=== PATIENT | male | born 1990 | race Caucasian/White ===

== ENCOUNTER 2020-11-20 14:25 | Inpatient (IN) | payer OTHER ==
[~2020-11-20] VITALS: Ht 182.9 cm; Wt 129.3 kg
[2020-11-20] MEDS ORDERED: ONDANSETRON 2MG/ML, 2ML IVPush ONE ×2 (15:00→16:00)
[2020-11-20] MEDS ORDERED: SODIUM CHLORIDE 0.9% 1,000ML IVBOLUS ONE (15:00)
[2020-11-20] MEDS ORDERED: FAMOTIDINE 20 MG/2 ML IVPush ONE (15:00)
[2020-11-20] MEDS ORDERED: SODIUM CHLORIDE FLUSH 10ML SYR IVF ONE (15:00)
[2020-11-20] MEDS ORDERED: FAMOTIDINE 20 MG/2 ML ONE (15:16)
[2020-11-20] MEDS ORDERED: ONDANSETRON 2MG/ML, 2ML ONE (15:16)
[2020-11-20 15:23] LABS: BASOPHILS % (AUTO) 0 % (0-1); EOSINOPHILS % (AUTO) 0 % (1-7); LYMPHOCYTES % (AUTO) 8 % (22-44); MEAN CORPUSCULAR HEMOGLOBIN 28.6 pg (27.5-34.5); MEAN CORPUSCULAR HGB CONC 34.1 g/dL (33.2-36.2); MEAN PLATELET VOLUME 8.4 fL (7.4-10.4); MONOCYTES % (AUTO) 9 % (2-9); NEUTROPHILS % (AUTO) 83 % (42-75); PLATELET COUNT 290 x10^3/uL (130-400); RED BLOOD COUNT 5.67 x10^6/uL (4.38-5.82); RED CELL DISTRIBUTION WIDTH 13.2 % (9.4-14.8)
[2020-11-20 15:27] LABS: ALANINE AMINOTRANSFERASE 633 U/L (12-78); ALBUMIN 4.3 g/dL (3.4-5.0); ANION GAP 7 mmol/L (5-15); CALCIUM 9.3 mg/dL (8.5-10.1); CHLORIDE 107 mmol/L (98-107); CREATININE 1.08 mg/dL (0.7-1.3)
[2020-11-20 15:30] LABS: ALKALINE PHOSPHATASE 199 U/L (45-117); BILIRUBIN,TOTAL 1.1 mg/dL (0.2-1.0); TOTAL PROTEIN 7.5 g/dL (6.4-8.2)
[2020-11-20 15:36] LABS: MD NO
[2020-11-20] MEDS ORDERED: MORPHINE SULFATE 4 MG/ML, 1ML ONE (15:42)
--- NOTE | 2020-11-20 15:50 | NUR ---
IV STARTED. PT MEDICATED PER EMAR. PT IN HOSPITAL GOWN. MONITORS PLACED ON PT. CALL LIGHT WITHIN REACH. PT FATHER AT BEDSIDE.
[2020-11-20] MEDS ORDERED: MORPHINE SULFATE 4 MG/ML, 1ML IVPush PRN (16:00)
[2020-11-20] MEDS ORDERED: OMNIPAQUE 350 MG/ML, 100ML BOTTLE ONE (16:08)
[2020-11-20] MEDS ORDERED: OMEP40CA42 PO (16:34)
[2020-11-20] MEDS ORDERED: hydrALAzine 20 MG/ML, 1ML IVPush PRN (17:00)
[2020-11-20] MEDS ORDERED: KETOROLAC 30 MG/1 ML IM PRN (17:00)
[2020-11-20] MEDS ORDERED: DOCUSATE 100 MG CAPSULE PO PRN (17:00)
[2020-11-20] MEDS ORDERED: METHOCARBAMOL 500 MG TABLET PO PRN (17:00)
[2020-11-20] MEDS ORDERED: ENALAPRILAT 1.25 MG/ML, 2ML IVPush PRN (17:00)
[2020-11-20] MEDS ORDERED: GUAIFENESIN/COD200MG-20MG/10ML LIQUID PO PRN (17:00)
[2020-11-20] MEDS ORDERED: ACETAMINOPHEN 325 MG TABLET PO PRN (17:00)
[2020-11-20] MEDS ORDERED: morphine SULFATE 10 MG/ML, 1ML IVPush PRN (17:00)
--- NOTE | 2020-11-20 18:06 | NUR ---
REPORT TO ANNITA POLLARD
[2020-11-20 18:53] VITALS: BP 120/77
[2020-11-20] MEDS: LACTATED RINGERS 1,000 ML IV SCH ×2 (19:18→22:00)
[2020-11-20] MEDS: ONDANSETRON 2MG/ML, 2ML IVPush PRN (19:29)
[2020-11-21 00:56] VITALS: BP 153/82
[2020-11-21] MEDS: LACTATED RINGERS 1,000 ML IV SCH ×5 (01:31→22:46)
[2020-11-21] MEDS: ONDANSETRON 2MG/ML, 2ML IVPush PRN ×2 (01:31→17:52)
[2020-11-21 05:46] LABS: BASOPHILS % (AUTO) 0 % (0-1); EOSINOPHILS % (AUTO) 2 % (1-7); LYMPHOCYTES % (AUTO) 21 % (22-44); MEAN CORPUSCULAR HEMOGLOBIN 29.2 pg (27.5-34.5); MEAN CORPUSCULAR HGB CONC 34.1 g/dL (33.2-36.2); MEAN PLATELET VOLUME 8.4 fL (7.4-10.4); MONOCYTES % (AUTO) 13 % (2-9); NEUTROPHILS % (AUTO) 65 % (42-75); PLATELET COUNT 228 x10^3/uL (130-400); RED BLOOD COUNT 4.96 x10^6/uL (4.38-5.82); RED CELL DISTRIBUTION WIDTH 13.6 % (9.4-14.8)
[2020-11-21 05:51] LABS: ALANINE AMINOTRANSFERASE 406 U/L (12-78); ALBUMIN 3.6 g/dL (3.4-5.0); CALCIUM 8.7 mg/dL (8.5-10.1); CREATININE 1.12 mg/dL (0.7-1.3)
[2020-11-21 05:55] LABS: ALKALINE PHOSPHATASE 151 U/L (45-117); BILIRUBIN,TOTAL 0.9 mg/dL (0.2-1.0); TOTAL PROTEIN 6.3 g/dL (6.4-8.2)
[2020-11-21 05:58] LABS: MD NO
[2020-11-21 06:00] LABS: ANION GAP 3 mmol/L (5-15); CHLORIDE 110 mmol/L (98-107)
[2020-11-21] MEDS: ESOMEPRAZOLE 40 MG IV IVPush SCH (06:24)
[2020-11-21 08:08] VITALS: BP 110/69
[2020-11-21 13:15] VITALS: BP 115/67
[2020-11-21] MEDS ORDERED: KETOROLAC 30 MG/1 ML IV PRN (17:01)
[2020-11-21 20:30] VITALS: BP 122/63
[2020-11-22 01:18] VITALS: BP 145/79
[2020-11-22] MEDS: LACTATED RINGERS 1,000 ML IV SCH ×3 (03:50→09:51)
[2020-11-22 06:16] LABS: CALCIUM 8.8 mg/dL (8.5-10.1)
[2020-11-22 06:23] LABS: ANION GAP 6 mmol/L (5-15); CHLORIDE 108 mmol/L (98-107)
[2020-11-22 07:30] VITALS: BP 120/72
[2020-11-22] MEDS: ESOMEPRAZOLE 40 MG IV IVPush SCH (08:18)
== END 2020-11-22 14:03 | disposition home or self-care (01) | DRG 438 ==
LOC: ED 15:03 → OBSVTOIN 17:11 → EDIP 17:11 → 3N 18:51 → DCLOUNGE 11-22 13:53
PROVIDERS: ADMIT Internal Medicine; ATTEND Internal Medicine
DX: K85.00 Idiopathic acute pancreatitis without necrosis or infection (principal); K65.0 Generalized (acute) peritonitis; B17.9 Acute viral hepatitis, unspecified; E66.9 Obesity, unspecified; E86.0 Dehydration; R73.9 Hyperglycemia, unspecified; R74.8 Abnormal levels of other serum enzymes; R79.89 Other specified abnormal findings of blood chemistry; Z68.38 Body mass index [BMI] 38.0-38.9, adult; Z87.11 Personal history of peptic ulcer disease
CPT/HCPCS: 36415; 74177; 80048; 80053; 83690; 85025; 99285; G0378; J1885; J2405; Q9967; J2270; J7030; J7120

== ENCOUNTER 2021-05-18 10:01 | Day surgery (SDC) | payer MEDICAID ==
[2021-05-15 16:45] LABS: BASOPHILS % (AUTO) 1 % (0-1); EOSINOPHILS % (AUTO) 1 % (1-7); LYMPHOCYTES % (AUTO) 22 % (22-44); MEAN CORPUSCULAR HGB CONC 33.6 g/dL (33.2-36.2); MEAN PLATELET VOLUME 8.2 fL (7.4-10.4); MONOCYTES % (AUTO) 10 % (2-9); NEUTROPHILS % (AUTO) 67 % (42-75); PLATELET COUNT 298 x10^3/uL (130-400); RED BLOOD COUNT 5.24 x10^6/uL (4.38-5.82); RED CELL DISTRIBUTION WIDTH 13.5 % (9.4-14.8)
[2021-05-15 16:50] LABS: INTERNATIONAL NORMALIZED RATIO 1.02 (0.93-1.1); PROTHROMBIN TIME 10.9 Seconds (9.6-11.5)
[2021-05-15 16:52] LABS: ALANINE AMINOTRANSFERASE 32 U/L (12-78); ALBUMIN 4.2 g/dL (3.4-5.0); ANION GAP 6 mmol/L (5-15); CALCIUM 9.2 mg/dL (8.5-10.1); CHLORIDE 106 mmol/L (98-107); CREATININE 1.19 mg/dL (0.7-1.3)
[2021-05-15 16:55] LABS: ALKALINE PHOSPHATASE 99 U/L (45-117); BILIRUBIN,TOTAL 0.4 mg/dL (0.2-1.0); TOTAL PROTEIN 7.4 g/dL (6.4-8.2)
[~2021-05-18] VITALS: Ht 180.3 cm; Wt 125.2 kg
[~2021-05-18 10:01] MED LIST: ACETAMINOPHEN 325 MG TABLET PO PRN; EPHEDRINE 50 MG/ML, 1ML IVPush PRN; FENTANYL PF 100 MCG/2ML IV PRN; HYDROmorphone 1 MG/ML, 1ML INJ IVPush PRN; LABETALOL 5MG/ML, 20ML IV PRN; MEPERIDINE/PF 25MG/0.5ML IVPush PRN; OMEP20TA62 PO; OMEP40CA8 PO; ONDANSETRON 2MG/ML, 2ML IVPush PRN; OXYcodone 5 MG/5 ML ORAL.SOL UDC PO PRN; PROMETHAZINE 25 MG/ML, 1ML IVPush PRN; hydrALAzine 20 MG/ML, 1ML IV PRN
[2021-05-18 10:29] VITALS: BP 134/84
[2021-05-18] MEDS ORDERED: LACTATED RINGERS 1,000 ML IV SCH (10:30)
[2021-05-18] MEDS ORDERED: CHLORHEXIDINE 15 ML UDC PO ONE (10:30)
[2021-05-18] MEDS ORDERED: CHLORHEXIDINE 15 ML UDC ONE (10:34)
[2021-05-18] MEDS ORDERED: BUPIVACAINE/PF 0.5% ONE (11:09)
[2021-05-18] MEDS ORDERED: EPINEPHRINE 1 MG/ML, 1ML ONE (11:09)
[2021-05-18] MEDS ORDERED: FENTANYL PF 100 MCG/2ML ONE (11:37)
[2021-05-18] MEDS ORDERED: MIDAZOLAM 1 MG/ML, 2ML ONE (11:37)
[2021-05-18] MEDS ORDERED: KETOROLAC 30 MG/1 ML ONE (12:14)
[2021-05-18] MEDS ORDERED: LIDOCAINE-MPF 2% ,5ML ONE (12:14)
[2021-05-18] MEDS ORDERED: ONDANSETRON 2MG/ML, 2ML ONE ×2 (12:16→12:32)
[2021-05-18] MEDS ORDERED: DEXAMETHASONE 4 MG/ML, 1ML ONE (12:16)
[2021-05-18] MEDS ORDERED: ROCURONIUM 10MG/ML,5ML ONE (12:16)
[2021-05-18] MEDS ORDERED: PROPOFOL 10 MG/ML, 20ML ONE (12:16)
[2021-05-18] MEDS ORDERED: SUCCINYLCHOLINE 20 MG/ML, 10ML ONE (12:16)
[2021-05-18] MEDS ORDERED: SUGAMMADEX 200 MG/2 ML IVPush ONE (12:29)
[2021-05-18] MEDS ORDERED: HYDROmorphone 1 MG/ML, 1ML INJ ONE (13:03)
[2021-05-18] MEDS ORDERED: HYDR-2214 PO (13:24)
== END 2021-05-18 16:35 | disposition home or self-care (01) ==
LOC: OUT 10:01
PROVIDERS: ATTEND Surgery
DX: K80.10 Calculus of gallbladder with chronic cholecystitis without obstruction (principal); K21.9 Gastro-esophageal reflux disease without esophagitis; E66.9 Obesity, unspecified; Z20.822 Contact with and (suspected) exposure to COVID-19; Z68.37 Body mass index [BMI] 37.0-37.9, adult; Z79.899 Other long term (current) drug therapy; Z79.01 Long term (current) use of anticoagulants; Z83.79 Family history of other diseases of the digestive system
CPT/HCPCS: 36415; 47562; 80053; 83690; 85025; 85610; 88304; J0171; J0330; J1100; J1170; J1885; J2250; J2405; J2704; J3010; J7120; U0003; U0005

== ENCOUNTER 2021-05-23 14:38 | Emergency (ER) | payer MEDICAID ==
[~2021-05-23] VITALS: Ht 182.9 cm; Wt 123.0 kg
[~2021-05-23 14:38] MED LIST changes: -ACETAMINOPHEN 325 MG TABLET PO PRN; -EPHEDRINE 50 MG/ML, 1ML IVPush PRN; -FENTANYL PF 100 MCG/2ML IV PRN; +HYDR-2214 PO; -HYDROmorphone 1 MG/ML, 1ML INJ IVPush PRN; -LABETALOL 5MG/ML, 20ML IV PRN; -MEPERIDINE/PF 25MG/0.5ML IVPush PRN; -ONDANSETRON 2MG/ML, 2ML IVPush PRN; -OXYcodone 5 MG/5 ML ORAL.SOL UDC PO PRN; -PROMETHAZINE 25 MG/ML, 1ML IVPush PRN; -hydrALAzine 20 MG/ML, 1ML IV PRN
[2021-05-23 15:17] LABS: BASOPHILS % (AUTO) 0 % (0-1); EOSINOPHILS % (AUTO) 1 % (1-7); LYMPHOCYTES % (AUTO) 13 % (22-44); MEAN CORPUSCULAR HEMOGLOBIN 29.3 pg (27.5-34.5); MEAN PLATELET VOLUME 7.8 fL (7.4-10.4); MONOCYTES % (AUTO) 9 % (2-9); NEUTROPHILS % (AUTO) 77 % (42-75); PLATELET COUNT 309 x10^3/uL (130-400); RED CELL DISTRIBUTION WIDTH 13.8 % (9.4-14.8)
[2021-05-23 15:29] LABS: ALANINE AMINOTRANSFERASE 83 U/L (12-78); ALBUMIN 3.8 g/dL (3.4-5.0); ANION GAP 4 mmol/L (5-15); CALCIUM 9.2 mg/dL (8.5-10.1); CHLORIDE 106 mmol/L (98-107); CREATININE 0.99 mg/dL (0.7-1.3)
[2021-05-23 15:31] LABS: ALKALINE PHOSPHATASE 106 U/L (45-117); BILIRUBIN,TOTAL 0.5 mg/dL (0.2-1.0); TOTAL PROTEIN 7.6 g/dL (6.4-8.2)
--- NOTE | 2021-05-23 18:10 | NUR ---
AIR SAMPLING AND MONITORING: PT TO ROOM FROM XUAN DOUGLAS
--- NOTE | 2021-05-23 18:45 | NUR ---
PT HAS CO ABDOMINAL PAIN. RECENT CHOLECTOMY ON SATURDAY. SNEAZED TODAY AND EXPEREINCED INTENSE PAIN. DENIES N/V/D. PT NOT IN DISTRESS. PAIN OK NOW
--- NOTE | 2021-05-23 19:58 | NUR ---
REPORT TO [facility]
--- NOTE | 2021-05-23 20:01 | NUR ---
REPORT FROM PRATIBHA POLLARD
[2021-05-23 20:19] VITALS: BP 112/53
== END 2021-05-23 21:15 | disposition home or self-care (01) ==
LOC: ED 21:08
DX: R10.84 Generalized abdominal pain (principal); Z90.49 Acquired absence of other specified parts of digestive tract
CPT/HCPCS: 36415; 76700; 80053; 83690; 85025; 99284